=== PATIENT | female | born 1945 | race Caucasian/White ===

== ENCOUNTER → 2020-11-13 | Outpatient (CLI) | payer MEDICARE ==
[~2020-11-13] MED LIST: AMLO-186 PO; BUDE10.7 IH; ESTR0.5T PO; HYDR-2867 PO; PRED-220 PO; TIOT18CA IH
--- NOTE | 2020-11-13 17:08 | CARD ---
MR#: [id number] Date of Study: 11/13/2020 Ordering Physician: GAYATHRI NORTH, Referring Physician: GAYATHRI NORTH, Tech: Zeny Rabago [facility] APPROVED REPORT EXAM: Two-dimensional and M-mode echocardiogram with Doppler and color Doppler. Other Information Quality : AverageHR: 66bpm Rhythm : NSR INDICATION Dyspnea RISK FACTORS Hypertension Obesity 2D DIMENSIONS RVDd3.2 (2.9-3.5cm)Left Atrium(2D)3.9 (1.6-4.0cm) IVSd1.2 (0.7-1.1cm)Aortic Root(2D)3.0 (2.0-3.7cm) LVDd4.7 (3.9-5.9cm)LVOT Diameter2.4 (1.8-2.4cm) PWd1.2 (0.7-1.1cm)LVDs2.2 (2.5-4.0cm) FS (%) 53.5 %SV86.3 ml Aortic Valve AoV Peak Juan J.121.4cm/sAoV VTI25.0cm AO Peak GR.5.9mmHgLVOT Peak Juan J.118.6cm/s LVOT VTI 25.91cmAO Mean GR.3mmHg TIMO (VMAX)3.72jj1SKH (VTI)4.54cm2 Mitral Valve MV E Yqtgnptx84.1cm/sMV DECEL [id number] MV A Mislvavq528.6cm/sMV WYP91pg E/A Ratio0.7MVA (PHT)2.63cm2 TDI E/Lateral E'8.6E/Medial E'9.1 Pulmonary Valve PV Peak Hgpjyair016.7cm/sPV Peak Grad.5mmHg Pulmonary Vein S1 Ejpfzfyj54.3cm/sD2 Evyiirac85.8cm/s PVa [id number] LEFT VENTRICLE The left ventricle is normal size. There is mild concentric left ventricular hypertrophy. The left ve ntricular systolic function is normal and the ejection fraction is within normal range. Left ventricu lar ejection fraction is 55 to 60%. There is normal LV segmental wall motion. Transmitral Doppler carol w pattern is Grade I-abnormal relaxation pattern. No left ventricle thrombus noted on this study. RIGHT VENTRICLE The right ventricle is normal size. There is normal right ventricular wall thickness. The right ventr icular systolic function is normal. ATRIA The left atrium is moderately dilated. The right atrium is mildly dilated. There is a possible small PFO noted on Doppler imaging, agitated contrast saline was not performed on this study. AORTIC VALVE The aortic valve is normal in structure and function. Doppler and Color Flow revealed no significant aortic regurgitation. There is no significant aortic valvular stenosis. MITRAL VALVE The mitral valve is normal in structure and function. There is no evidence of mitral valve prolapse. There is no mitral valve stenosis. Doppler and Color-flow revealed trace to mild mitral regurgitation . TRICUSPID VALVE The tricuspid valve is normal in structure and function. Doppler and Color Flow revealed trace tricus pid regurgitation. GREAT VESSELS The aortic root is normal in size. The ascending aorta is normal in size. The IVC is normal in size a nd collapses >50% with inspiration. PERICARDIAL EFFUSION There is no evidence of significant pericardial effusion. Critical Notification Critical Value: No <Conclusion> The left ventricle is normal size. The left ventricular systolic function is normal and the ejection fraction is within normal range. Left ventricular ejection fraction is 55 to 60%. There is mild concentric left ventricular hypertrophy. There is a possible small PFO noted on Doppler imaging, agitated contrast saline was not performed on this study. Doppler and Color Flow revealed no significant aortic regurgitation. There is no significant aortic valvular stenosis. Doppler and Color-flow revealed trace to mild mitral regurgitation. Doppler and Color Flow revealed trace tricuspid regurgitation. Signed by : Wei Desir MD Electronically Approved : 11/13/2020 17:08:38
== END ==
LOC: ECHO 07:38
PROVIDERS: ATTEND Internal Medicine Pulmonary Disease
DX: I34.0 Nonrheumatic mitral (valve) insufficiency (principal); I51.7 Cardiomegaly
CPT/HCPCS: 93017; 93306

== ENCOUNTER → 2021-02-02 | Outpatient (CLI) | payer MEDICARE ==
[~2021-02-02] MED LIST changes: +ALBU2.5V8 INH
== END ==
LOC: LAB 09:47
PROVIDERS: ATTEND Internal Medicine Cardiovascular Disease
DX: Z01.812 Encounter for preprocedural laboratory examination (principal); Z20.822 Contact with and (suspected) exposure to COVID-19; K40.90 Unilateral inguinal hernia, without obstruction or gangrene, not specified as recurrent
CPT/HCPCS: U0003; U0005

== ENCOUNTER 2021-02-03 08:55 | Outpatient (CLI) | payer MEDICARE ==
[2021-02-03] VITALS (9 sets, daily range): BP systolic 143–181; BP diastolic 61–79
[~2021-02-03] VITALS: Ht 160 cm; Wt 81.6 kg
[~2021-02-03 08:55] MED LIST changes: -ALBU2.5V8 INH
[2021-02-03] MEDS ORDERED: ALBU2.5V8 INH (09:26)
[2021-02-03 09:27] LABS: HEMATOCRIT 35.8 % (36.0-47.0); RED BLOOD COUNT 4.01 x10^6/uL (3.50-5.40); RED CELL DISTRIBUTION WIDTH 12.8 % (11.5-14.5); WHITE BLOOD COUNT 7.5 x10^3/uL (4.0-11.0)
[2021-02-03 09:47] LABS: PROTHROMBIN TIME PATIENT 12.9 SEC (11.7-14.0)
[2021-02-03 09:56] LABS: CALCIUM 8.2 mg/dL (8.5-10.1); CREATININE 1.3 mg/dL (0.6-1.0); GFR 40.2; POTASSIUM 3.5 mmol/L (3.5-5.1)
[2021-02-03] MEDS ORDERED: LIDOCAINE 1% Multi-Dose 20 ML VIAL. ONE (10:05)
[2021-02-03] MEDS ORDERED: IODIXANOL 320 MG/ML 100 ML VIAL. ONE (10:06)
[2021-02-03] MEDS ORDERED: fentaNYL PF VIAL 100 MCG/2 ML VIAL ONE (10:07)
[2021-02-03] MEDS ORDERED: MIDAZOLAM HCL/PF 2 MG/2 ML VIAL. ONE (10:08)
[2021-02-03] MEDS ORDERED: IODIXANOL 320 MG/ML 100 ML VIAL. IART ONE (11:00)
[2021-02-03] MEDS ORDERED: LIDOCAINE 1% Multi-Dose 20 ML VIAL. INJ ONE (11:00)
[2021-02-03] MEDS ORDERED: fentaNYL PF VIAL 100 MCG/2 ML VIAL IV ONE (11:00)
[2021-02-03] MEDS ORDERED: MIDAZOLAM HCL/PF 2 MG/2 ML VIAL. IV ONE (11:00)
--- NOTE | 2021-02-03 12:55 | NUR ---
Pt completed required recovery time flat and now HOB is raised to 45 degrees. No bleeding noted at this time. CORDELL RN
--- NOTE | 2021-02-03 13:23 | NUR ---
Discharge Note: SANDRA CAMPUZANO Discharge instructions and discharge home medications reviewed with Patient and a copy given. All questions have been answered and understanding verbalized. The following instructions and handouts were given: Groin site care and moderate sedation. Discontinued lines and drains: left hand iv dc'd and tip intact. Patient discharged to home with daughter via personal vehicle.
--- NOTE | 2021-02-03 13:43 | CARD ---
MR#: [id number] Date of Study: 02/03/2021 Ordering Physician: MALGORZATA CHESTER, Referring Physician: MALGORZATA CHESTER, Tech: RT Suleman(R)() APPROVED REPORT Technologist: RT Suleman(R)() Nurse: Clover Geller RN Procedure(s) performed: Right and left heart catheterization, selective coronary angiography and left ventriculography fl time: 4.2 mins dose: 26 gycm2 contrast: 68 ml moderate sedation: 30 MINS INDICATION The indication(s) include : Refractory dyspnea on exertion and patent foramen ovale. [facility] Clinical Frailty Scale [facility] Clinical Frailty Scale: Moderately Frail Heart Failure Heart Failure: Yes If Yes, Newly Diagnosed: No If Yes, HF Type: Diastolic If Yes, NYHA Class: Class II CASE TECHNIQUE IV conscious sedation was used throughout procedure with appropriate monitoring and was performed in the presence of a registered nurse who was an independent trained observer other than the physician p erforming the procedure. During this case, Fluoroscopy and low osmolar contrast were used for imaging . Specimen(s) Removed: No Estimated Blood loss: 25 cc's. PROCEDURE NARRATIVE After explaining the risk, benefits and alternative options, informed consent was obtained from patie nt. Patient was brought to the [facility] and the right groin was prepped and draped in the us ual fashion. 20 cc of angiography of the left and right coronary arteries % lidocaine was infiltrate d into the skin and subcutaneous tissues for local anesthesia. Arterial and venous accesses were obt ained in the right common femoral artery and vein respectively and 6 and 8 Egyptian sheaths inserted. A 7.5 Egyptian [place] catheter was advanced through the venous sheath and intracardiac pressures, ox ygen saturations and cardiac output by Fausto method measured. Subsequently, 6 Egyptian JL4 and 6 Egyptian JR4 catheters were advanced through the arterial sheath and selective angiography of the left and ri ght coronary arteries was performed. 6 Egyptian pigtail catheter was used to perform left ventriculogr aphy. Patient tolerated the procedure well. Hemostasis was achieved using Angio-Seal and manual com pression. There were no immediate complications. A. RIGHT HEART CATHETERIZATION 1. Intracardiac pressures: Mean right atrial pressure 7 mmHg, right ventricular pressure 42/5 mmHg, pulmonary artery pressure 40/14 mmHg with mean pulmonary artery pressure of 25 mmHg and mean pulmonar y capillary wedge pressure of 13 mmHg. This is consistent with mild pulmonary hypertension. 2. Oxygen saturations: Superior vena cava 79.1%, inferior vena cava 77.9%, mid right atrium 80.9%, p ulmonary artery 79.0% and femoral arterial sheath 95.1%. No significant intracardiac shunt. 3. Cardiac output by Fausto method 6.5 L/min. B. LEFT HEART CATHETERIZATION 1. Hemodynamics: Left ventricular end-diastolic pressure 23 mmHg. No pullback gradient across the a ortic valve. 2. Left ventriculography: Normal left ventricular systolic function with ejection fraction estimated at 65%. No significant mitral regurgitation seen. 3. Coronary angiography: a. The left main coronary artery arose from the left sinus of Valsalva, gave rise to the left anteri or descending and left circumflex arteries and did not show any significant stenosis. b. The left anterior descending artery did not show any significant stenosis. c. The left circumflex artery did not show any significant stenosis. d. The right coronary artery was a dominant vessel arising from the right sinus of Valsalva that did not show any significant stenosis. Conclusion 1. No significant coronary artery disease 2. Normal left ventricular systolic function with ejection fraction estimated at 65% 3. Mild pulmonary hypertension 4. No significant intracardiac shunt Recommendations Medical Therapy Signed by : Malgorzata Chester, Electronically Approved : 02/03/2021 13:43:11
== END 2021-02-03 13:41 | disposition home or self-care (01) ==
LOC: CCL 08:55
PROVIDERS: ATTEND Internal Medicine Cardiovascular Disease
DX: R06.09 Other forms of dyspnea (principal); Q21.1 Atrial septal defect; I27.20 Pulmonary hypertension, unspecified; J44.9 Chronic obstructive pulmonary disease, unspecified; Z90.49 Acquired absence of other specified parts of digestive tract; Z90.710 Acquired absence of both cervix and uterus; Z98.890 Other specified postprocedural states; Z87.891 Personal history of nicotine dependence; Z79.899 Other long term (current) drug therapy; Z88.2 Allergy status to sulfonamides; Z88.8 Allergy status to other drugs, medicaments and biological substances
CPT/HCPCS: 36415; 80048; 85027; 85610; 93460; 99152; 99153; C1760; C1769; C1773; C1892; J1644; J2250; J3010; J3490; Q9967; G0269